=== PATIENT | male | born 1970 | race African-American/Black ===

== ENCOUNTER 2017-05-08 11:01 | Emergency (ER) | payer OTHER ==
[~2017-05-08] VITALS: Ht 162.6 cm; Wt 63.5 kg
[2017-05-08] MEDS ORDERED: Cephalexin 500mg cap ORAL ONE (11:45)
--- NOTE | 2017-05-08 12:23 | Diagnostic Imaging Report ---
Indication: Pain Technique: XRAY Forearm 2v L Comparison: None Findings: Minimally displaced oblique fracture of the distal radius status post surgical fixation with volar plate and multiple screws. The fracture line is still lucent. No significant callus formation is seen. No additional fractures identified. There is some overlying soft tissue swelling. Impression: Minimally displaced fracture of the distal radius status post fixation with volar plate and screws. Fracture line is still evident. No significant callus formation. Overlying soft tissue swelling. Correlation with clinical history/surgical report recommended as these findings may all be related to the original fracture if the surgery was recent. If surgery was remote and there has been recent trauma this could represent a new acute fracture. Comparison with prior radiographs necessary for assessment for interval change.
[2017-05-08] MEDS ORDERED: KEFLEX500 MG ORAL (12:40)
[2017-05-08] MEDS ORDERED: BACTRIM DS TAB1 EAC1 ORAL (12:40)
[2017-05-08 12:47] VITALS: BP 131/76
[2017-05-08 13:00] VITALS: BP 131/76
--- NOTE | 2017-05-10 14:01 | Emergency Room Report ---
History of Present Illness General Chief Complaint: Pain Source: Patient Present Illness HPI Patient is a 46-year-old male who presented after increased left wrist pain. The patient had recent surgery to his left forearm. He states that he had noticed increased swelling to the surgical site. He had surgery approximately 2 weeks prior to arrival. Patient stated that he did not recall what happened to his wrist. Patient prior history of seizure disorder. He denies any fever. Allergies: Coded Allergies: NO KNOWN ALLERGIES (Unverified Allergy, Unknown, 12/01/14) Patient History Past Medical History: see triage record, seizures Reviewed Nursing Documentation: PMH: Agreed, PSxH: Agreed Nursing Documentation-PMH Past Medical History: No History, Except For Hx Diabetes: Yes Hx Neurological Problems: Yes - nerve stimulator Hx Seizures: Yes Review of Systems All Other Systems: negative except mentioned in HPI Physical Exam Vital Signs Date Time Temp Pulse Resp B/P (MAP) Pulse Ox O2 Delivery O2 Flow Rate FiO2 05/08/17 10:59 97.7 88 18 112/68 99 Room Air 97.7 General Appearance: well appearing, no apparent distress, alert, GCS 15 Head: normocephalic, atraumatic ENT: hearing grossly normal, normal voice Neck: full range of motion, supple Respiratory: no respiratory distress, speaking full sentences Musculoskeletal: no calf tenderness Neurologic: normal inspection, alert, oriented x3, normal gait Psychiatric: mood/affect normal Skin: other - erythema to skin staple to volar aspect of left wrist, no streaking, no purulent discharge Medical Decision Making Diagnostic Impression: Primary Impression: Seizure disorder Additional Impression: Wound infection ER Course Patient presented for wound check. Differential diagnosis included was not limited to infected wound, nonhealed wound, neuroma, healed wound. Because of complexity of patient's case laboratory testing and imaging studies were ordered. Patient was noted to have some evidence of infection. Lebeau removed. The patient did have intact movement of his hand after removal. The patient is advised to follow up with primary care doctor in 1-2 days. Patient is advised to return if any worsening condition or if any changes in status that are concerning. This report is dictated with [employer] tap puller software which may occasionally lead to discrepancies related to use of this software. Last Vital Signs Date Time Temp Pulse Resp B/P (MAP) Pulse Ox O2 Delivery O2 Flow Rate FiO2 05/08/17 13:00 97.7 88 18 131/76 100 Room Air 207.9 Status: improved Disposition: HOME, SELF-CARE Condition: Stable Scripts Trimethoprim/Sulfamethoxazole 160/800* (BACTRIM DS TABLET*) 1 Each Tablet 1 TAB ORAL TWICE A DAY, #14 TAB Prov: Waldemar Riddle 05/08/17 Cephalexin* (KEFLEX*) 500 Mg Capsule 500 MG ORAL Q6H, #28 CAP 0 Refills Prov: Waldemar Riddle 05/08/17 Patient Instructions: Wound Infection Waldemar Riddle May 10, 2017 14:01
== END 2017-05-08 13:00 | disposition home or self-care (01) ==
LOC: EDBD 11:01 → EMR 11:15
DX: T81.4XXA Infection following a procedure, initial encounter (principal); Y83.8 Other surgical procedures as the cause of abnormal reaction of the patient, or of later complication, without mention of misadventure at the time of the procedure; Y92.9 Unspecified place or not applicable; Z48.01 Encounter for change or removal of surgical wound dressing; G40.909 Epilepsy, unspecified, not intractable, without status epilepticus; E11.9 Type 2 diabetes mellitus without complications
CPT/HCPCS: 99284